=== PATIENT | male | born 1990 | race Caucasian/White ===

== ENCOUNTER 2025-01-04 12:14 | Emergency (ER) | payer SELFPAY ==
[2025-01-04 12:14] VITALS: BMI 19.3
[2025-01-04 12:15] VITALS: BP 124/94
[2025-01-04 12:17] VITALS: BP 124/94
[2025-01-04 12:37] LABS: % Basophils 0.9 % (0-2); % Eosinophils 0.7 % (0-6); % Immature Granulocytes 0.7 % (0-0.5); % Lymphocytes 18.6 % (20.5-51.1); % Monocytes 6.3 % (1.7-9.3); % Neutrophils 72.8 % (42.2-75.2); Absolute Basophils 0.1 10^3/uL (0-0.2); Absolute Lymphocytes 1.1 10^3/uL (1.2-3.4); Absolute Monocytes 0.4 10^3/uL (0.1-0.6); Absolute Neutrophils 4.3 10^3/uL (1.4-6.5); Hemoglobin 12.3 g/dL (13.0-18.0); Mean Corp Hgb Conc. 36.2 g/dL (33.0-37.0); Mean Corpuscular Hgb 34.4 pg (27.0-31.0); Nucleated Red Blood Cells % 0 % (-); Red Blood Cell Count 3.58 10^6/uL (4.70-6.10); Red Cell Dist. Width 16.4 % (11.5-14.5); White Blood Cell Count 5.9 10^3/uL (4.8-10.8)
[2025-01-04 13:00] VITALS: BP 131/83
[2025-01-04 13:02] LABS: ALT (SGPT) 126 U/L (0-50); AST (SGOT) 523 U/L (17-59); Albumin 4.6 g/dl (3.5-5.0); Alkaline Phosphatase 156 U/L (38-126); Blood Urea Nitrogen 6 mg/dl (9-20); Calcium 9.4 mg/dl (8.4-10.2); Carbon Dioxide 22 mmol/L (22-30); Chloride 98 mmol/L (98-107); Estimated Creatinine Clearance 102 ml/min; Glucose 187 mg/dl (70-99); Potassium 4.1 mmol/L (3.5-5.1); Sodium 132 mmol/L (135-145); Total Protein 7.2 g/dl (6.3-8.2); eGFR > 60.00
[2025-01-04 13:04] LABS: Mean Platelet Volume 9.8 fL (7.4-10.4); Platelet Count 98 10^3/uL (130-400)
[2025-01-04 14:00] VITALS: BP 134/90
[2025-01-04 15:00] VITALS: BP 136/97
--- NOTE | 2025-01-04 15:47 | ED.GENMED ---
History of Present Illness
General
Chief Complaint: Seizure
Time Seen by Provider: 01/04/25 12:26
History of Present Illness
History of Present Illness:
34-year-old male with history of underlying seizure disorder presents the emergency department for evaluation of a seizure. It was witnessed by family, lasted approximate 90 seconds. He reports that he had a Myocrisin 2 days ago that may have been
provoked by a seizure, estimates 3 events in the past 6 months. He is maintained on Keppra 500 mg twice daily and states he has been fully compliant. Denies illicit substance use or alcohol use. Denies other complaints right now
Review of Systems
Review of Systems
Allergies reviewed?: Yes
All Other Systems: ROS reviewed and negative except as documented in HPI and ROS
Phy Exam
Physical Exam
Physical Exam:
GEN: Well appearing, NAD, WDWN
Eyes: PERRLA, EOMs intact, no scleral icterus
HENT: NCAT, oral mucosa moist
Lungs: CTAB, no wheezes, rales, rhonchi, normal chest wall excursion
Cardiac: RRR, no M/R/G, no peripheral edema. Radial pulses 2+ bilat
Abdomen: S, NT, ND, NABS, no masses or hepatosplenomegaly
Neuro: AO x 3
MSK: No gross deformity or ecchymosis. No edema. No digital clubbing
Skin: No rashes, petechiae. Normal color, no pallor or jaundice.
Psych: Calm, cooperative, proper hygiene
Course
Orders/Labs/Results
Orders:
Orders
01/04/25 12:24
Complete Blood Count/With Diff Urgent
Comprehensive Metabolic Panel Urgent
Keppra (Levetiracetam) [S] Urgent
01/04/25 12:25
ECG [Electrocardiogram (*1)] Urgent
Reason for Study: Syncope
01/04/25 12:26
EKG- Treatment ONCE
01/04/25 13:22
US Abdomen Complete/Upper Urgent
Comment:
Reason For Exam: transaminitis
Abnormal Lab Results
01/04/25
12:24
RBC 3.58 L 10^6/uL
(4.70-6.10)
Hgb 12.3 L g/dL
(13.0-18.0)
Hct 34.0 L %
(39.0-52.0)
MCV 95.0 H fL
(80.0-94.0)
MCH 34.4 H pg
(27.0-31.0)
RDW 16.4 H %
(11.5-14.5)
Plt Count 98 L 10^3/uL
(130-400)
Absolute Lymphs (auto) 1.1 L 10^3/uL
(1.2-3.4)
Immature Gran % 0.7 H %
(0-0.5)
Lymphocytes % 18.6 L %
(20.5-51.1)
Sodium 132 L mmol/L
(135-145)
BUN 6 L mg/dl
(9-20)
Glucose 187 H mg/dl
(70-99)
Total Bilirubin 3.0 H mg/dl
(0.2-1.3)
AST 523 H* U/L
(17-59)
ALT 126 H U/L
(0-50)
Alkaline Phosphatase 156 H U/L
(38-126)
01/04/25 12:24
01/04/25 12:24
Vital Signs
Initial and Last Documented VS:
Initial Vital Signs
Temp Pulse Resp BP Pulse Ox
99.1 F 110 20 124/94 99
01/04/25 12:15 01/04/25 12:15 01/04/25 12:15 01/04/25 12:15 01/04/25 12:15
Last Documented Vital Signs
Temp Pulse Resp BP Pulse Ox
99.1 F 83 14 136/97 98
01/04/25 12:15 01/04/25 15:45 01/04/25 15:30 01/04/25 15:00 01/04/25 15:45
MDM/Problems Addressed
MDM/Problems Addressed:
Patient is noted to have transaminitis and elevated total bilirubin, given the elevation of bilirubin it makes it less likely that this is an inflammatory response to recent seizure event. He again denies alcohol use. Given thrombocytopenia this
is the suspicion at this time, certainly could be nonalcoholic steatohepatitis. Will send for ultrasound although he has no abdominal pain. He also denies Tylenol use
*Critical Care Note
Total Time (30-74mins, 75-104mins- exclusive of procedures): Not Applicable
ED Attending Note
-
Portions of this chart may have been created with voice recognition software.� Occasional wrong word or��sound alike� substitutions may have occurred due to the inherent limitations of voice recognition software.
Discharge Plan
Departure
Patient Disposition: Home (Routine Discharge)
Date of Disposition: 01/04/25
Time of Disposition: 15:53
Patient with high blood pressure during this ER visit?: No
Discharge Problem:
Seizure
Instructions: Seizures, Adult (DC)
Prescriptions:
New
levetiracetam [Keppra] 1,000 mg tablet
1,000 mg PO Q12H Qty: 60 0RF
No Action
ondansetron 4 MG tablet,disintegrating
4 mg PO TIDPRN PRN (Reason: nausea/vomiting) Qty: 10 0RF
Referrals:
Marquis Marvin MD [Active, Gastroenterology]
Panda Oropeza MD [Active, Neurology]
Activity Restrictions/Additional Instructions:
Increase your Keppra dosage to 1000 mg twice daily
Follow-up with the listed customer development manager to discuss your abnormal liver function and findings on ultrasound of fatty liver disease
Limit use of acetaminophen and avoid alcohol until follow-up with your primary doctor or gastroenterology
Follow-up with neurology listed on the paperwork as well
Interventions
Interventions:
*Risk Screen - Suicide Last Done: 01/04/25 12:15
*General Assessment Last Done: 01/04/25 12:15
*Neglect/Abuse Screening Last Done: 01/04/25 12:15
*ED- Fall Risk Assessment Last Done: 01/04/25 12:15
*ED COVID-19 Vaccine History Last Done: 01/04/25 12:15
*Nursing Disposition Last Done: 01/04/25 16:15
ED- Cardiac Assessment Last Done: 01/04/25 12:20
ED- Neurological Assessment Last Done: 01/04/25 12:20
ED- Pulmonary Assessment Last Done: 01/04/25 12:20
Discharge Date and Time
Discharge Date/Time: 01/04/25 16:16
Print Language: GREENLANDIC
[2025-01-06 23:22] LABS: Keppra (Levetiracetam) <2 ug/mL (10-40)
== END 2025-01-04 16:16 | disposition home or self-care (01) ==
LOC: EMR 12:14
PROVIDERS: EMERGENCY PHYSICIAN Emergency Medicine
DX: G40.909 Epilepsy, unspecified, not intractable, without status epilepticus (principal); R79.89 Other specified abnormal findings of blood chemistry; Z79.899 Other long term (current) drug therapy
CPT/HCPCS: 99284; 76700; 80053; 80177; 85025; 93005